=== PATIENT | female | born 1985 | race Caucasian/White ===

== ENCOUNTER 2022-08-12 20:47 | Emergency (ER) | payer OTHER ==
--- NOTE | 2022-08-12 20:53 | ERPHSYRPT ---
- History of Present Illness Time Seen by Provider: 08/12/22 20:53 Source: patient Physician History: Pt c/o neck pain and right anterior leg pain after a fall 5 hours ago. Patient reports slipping and falling on a street curb, pt reports falling on her right side. Denied hitting head/neck or LOC Pain in the neck is mainly over b/l trapezius muscles No radiation. Pain described as sharp. Exacerbated by neck rotation. Relieved by rest. No assoc sx like: weakness, decreased sensation, dropping objects. Right leg pain Pt c/o ankle pain, right. Location: anterior. Worsens with ambulation, dorsiflexion No symptoms of instability. Twisted during fall 5 hours [employer] No h/o surgery or previous injury. No bruising, no swelling Timing/Duration: today Method of Injury: fall Quality: sharp Back Pain Location: C-spine Severity of Pain-Max: moderate Severity of Pain-Current: mild Modifying Factors: Improves With: rest. Worsens With: movement Associated Symptoms: denies symptoms Previous symptoms: no prior history Allergies/Adverse Reactions: morphine Allergy (Verified 08/12/22 21:01) Home Medications: ARIPiprazole [Aripiprazole] 5 mg PO DAILY 08/12/22 [History] Bupropion HCl 150 mg Sr [Wellbutrin SR 150 MG] 150 mg PO DAILY 08/12/22 [History] Hydroxyzine HCl 25 mg [Atarax 25 mg] 25 mg PO DAILY 08/12/22 [History] Hx Tetanus, Diphtheria Vaccination/Date Given: No Hx Influenza Vaccination/Date Given: No Hx Pneumococcal Vaccination/Date Given: No - Review of Systems Constitutional: No Symptoms Eyes: No Symptoms Ears, Nose, & Throat: No Symptoms Respiratory: No Symptoms Cardiac: No Symptoms Abdominal/Gastrointestinal: No Symptoms Genitourinary Symptoms: No Symptoms Musculoskeletal: Neck Pain, Joint Pain (right ankle) Skin: No Symptoms Neurological: No Symptoms Psychological: No Symptoms Endocrine: No Symptoms Hematologic/Lymphatic: No Symptoms Immunological/Allergic: No Symptoms All Other Systems: Reviewed and Negative - Past Medical History Pertinent Past Medical History: Yes Neurological History: Migraines - Past Surgical History Past Surgical History: Yes Female Surgical History: Section - Social History Smoking Status: Never smoker Exposure to second hand smoke: No Drug Use: none Patient Lives Alone: Yes - Nursing Vital Signs Nursing Vital Signs: Initial Vital Signs Temperature 97.8 F 08/12/22 21:03 Pulse Rate 83 08/12/22 21:03 Respiratory Rate 14 08/12/22 21:03 Blood Pressure 111/72 08/12/22 21:03 O2 Sat by Pulse Oximetry 97 08/12/22 21:03 Pain Scale Pain Intensity 5 - Physical Exam General Appearance: no apparent distress Eye Exam: PERRL/EOMI, eyes nml inspection Ears, Nose, Throat Exam: normal ENT inspection Neck Exam: normal inspection, supple, full range of motion, other (TTP b/l trapezius), No midline tenderness Respiratory Exam: No respiratory distress Cardiovascular Exam: capillary refill <2 sec Back Exam: normal inspection, normal range of motion, No vertebral tenderness Extremity Exam: normal inspection, normal range of motion, tenderness (anterior right ankle), No deformities, No parasthesia, No swelling Neurologic Exam: alert, oriented x 3, cooperative Skin Exam: normal color, warm, dry, No ecchymosis SpO2 Interpretation: normal O2 Delivery: Room Air - Course Nursing assessment & vital signs reviewed: Yes - Radiology Exams C-Spine X-ray Interpretation: Interpreted by me, Negative Ordered Tests: Active Orders 24 hr Category Date Time Status CERVICAL SPINE MINIMUM 4 VIEWS Stat Exams 08/12/22 21:39 Taken Medication Summary Discontinued Medications Generic Name Dose Route Start Last Admin Trade Name Kushalq PRN Reason Stop Dose Admin Cyclobenzaprine HCl 5 mg 08/12/22 21:23 08/12/22 21:26 Cyclobenzaprine Hcl 10 Mg Tablet PO 08/12/22 21:24 5 mg STAT ONE Administration Cyclobenzaprine HCl Confirm 08/12/22 21:26 Cyclobenzaprine Hcl 10 Mg Tablet Administered 08/12/22 21:27 Dose 10 mg .ROUTE .STK-MED ONE Naproxen 500 mg 08/12/22 21:24 08/12/22 21:42 Naproxen 500 Mg Tablet PO 08/12/22 21:25 500 mg STAT ONE Administration - Progress Progress: improved Progress Note: Patient given Naproxen and Flexoril, doing well pain improved. C-spine neg as read by me. 08/12/22 21:46 - Departure Departure Disposition: Home Clinical Impression: Trapezius muscle strain Qualifiers: Encounter type: initial encounter Sprain of right ankle Qualifiers: Encounter type: initial encounter Involved ligament of ankle: other ligament Qualified Code(s): S93.491A - Sprain of other ligament of right ankle, initial encounter Condition: Good Critical Care Time: No Referrals: GENES[facility] INGRAM [Primary Care Provider] - Follow up/PCP as directed Instructions: Ankle Sprain, Cervical Muscle Strain (DC) Additional Instructions: Followed [place] rules and determined there is no need for imaging. Limited wt bearing. Early mobilization. Pmuth-fo-oyhgar exercises w/ ABC exercise Ice 4 times a day for 10 min each Compression sleeve prn Elevation. Naproxen 500mg BID x 10 days F/U w/ PCP if condition worsening or not improving in a week. You were evaluated in the Emergency Department today for neck pain. Your evaluation suggests no acute abnormalities which require further intervention at this time. Move around as tolerated but avoiding heavy lifting. Bed rest is not recommended nor is it the best treatment. Medications will help control your discomfort: Naproxen 500mg BID x 10 days. Flexoril 5mg TID prn Do not drink alcohol, drive a car, operate machinery, or get up on ladders or heights when taking any prescribed pain medications. Please follow up with your primary care physician as needed. If you do not have a primary doctor, you can call your insurance company to find one. If you do not have insurance, you can go to the finance/registration department for more assistance. Return to the ED immediately if you develop any of the following problems: New numbness or weakness in your UE Fever Prescriptions: Cyclobenzaprine HCl 5 mg PO TID 3 Days #9 tablet
[2022-08-12] MEDS ORDERED: Cyclobenzaprine 10 MG PO ONE (21:23)
[2022-08-12] MEDS ORDERED: Naprosyn 500 MG PO ONE (21:24)
[2022-08-12] MEDS ORDERED: Cyclobenzaprine 10 MG ONE (21:26)
[2022-08-12 22:18] VITALS: BP 126/69; PULSE 75; O2SAT 99
--- NOTE | 2022-08-13 08:39 | XRAY ---
Indication: Pain following fall. Comparison: None 6 view cervical spine demonstrates lordotic straightening and minimal dextroscoliosis centered at C5. Foramina bilaterally patent. No bony, articular, or soft tissue abnormalities.
== END 2022-08-12 22:23 | disposition home or self-care (01) ==
LOC: ED 20:47
DX: S16.1XXA Strain of muscle, fascia and tendon at neck level, initial encounter (principal); S93.491A Sprain of other ligament of right ankle, initial encounter; W10.1XXA Fall (on)(from) sidewalk curb, initial encounter; Z79.899 Other long term (current) drug therapy
CPT/HCPCS: 72050; 99283; A9270-GY